=== PATIENT | male | born 1930 | race Caucasian/White ===

== ENCOUNTER 2017-02-21 11:02 | Emergency (ER) | payer MEDICARE ==
[~2017-02-21] VITALS: Ht 177.8 cm; Wt 80.9 kg
[~2017-02-21 11:02] MED LIST: AGGR20025 PO; NIAC250C6 PO; ROSU20 PO; TAB-TAB PO; TOLT4 PO; TYLE500T PO; [UNRECOGNIZED DRUG - CODE] PO
[2017-02-21 11:04] VITALS: BP 138/72; PULSE 87; RESP 16; TEMP 99.7; O2SAT 97
--- NOTE | 2017-02-21 11:31 | RADRPT ---
EXAM DATE/TIME: 02/21/2017 11:21 [place] COMPARISON: No previous studies available for comparison. INDICATIONS : Cough x1 week, shortness of breath. MEDICAL HISTORY : None. SURGICAL HISTORY : None. ENCOUNTER: Initial ACUITY: 1 week PAIN SCORE: 2/10 LOCATION: Bilateral chest FINDINGS: PA and lateral views of the chest demonstrate the lungs to be symmetrically aerated without evidence of mass, infiltrate or effusion. The cardiomediastinal contours are unremarkable. Osseous structure s are intact. Numerous healed right sided rib fractures and severe osteoporosis of both shoulders. Th ere's been distal resection of the left lateral clavicle. CONCLUSION: Normal examination. Lungs are grossly clear. Sharad Deng MD on February 21, 2017 at 11:28 Board Certified Radiologist. This report was verified electronically.
[2017-02-21 11:53] LABS: AUTOMATED NEUTROPHIL # 3.8 TH/MM3 (1.8-7.7); BASOPHIL % 0.5 % (0.0-2.0); EOSINOPHIL % 0.4 % (0.0-4.0); HEMATOCRIT 45.7 % (39.0-51.0); HEMOGLOBIN 15.7 GM/DL (13.0-17.0); LYMPHOCYTE # 0.8 TH/MM3 (1.0-4.8); MEAN CELL VOLUME 87.5 FL (80.0-100.0); MEAN CORPUSCULAR HEMOGLOBIN 30.1 PG (27.0-34.0); MEAN CORPUSCULAR HGB CONC 34.4 % (32.0-36.0); MEAN PLATELET VOLUME 9.3 FL (7.0-11.0); MONO % 18.3 % (0.0-8.0); NEUT % 66.8 % (16.0-70.0); PLATELET COUNT 123 TH/MM3 (150-450); RED BLOOD COUNT 5.22 MIL/MM3 (4.50-5.90); RED CELL DISTRIBUTION WIDTH 13.8 % (11.6-17.2); WHITE BLOOD COUNT 5.6 TH/MM3 (4.0-11.0)
[2017-02-21 12:14] LABS: ALBUMIN 3.9 GM/DL (3.4-5.0); AST (GOT) 26 U/L (15-37); BICARBONATE 27.5 MEQ/L (21.0-32.0); BLOOD UREA NITROGEN 15 MG/DL (7-18); CALCIUM 8.7 MG/DL (8.5-10.1); CHLORIDE 104 MEQ/L (98-107); CREATININE 1.09 MG/DL (0.60-1.30); GLOMERULAR FILTRATION RATE 64 ML/MIN (>89); GLUCOSE,RANDOM 91 MG/DL (74-106); LIPASE 93 U/L (73-393); SODIUM (NA) 138 MEQ/L (136-145)
[2017-02-21 12:18] LABS: ALKALINE PHOSPHATASE 75 U/L (45-117); ALT (GPT) 25 U/L (12-78); TOTAL BILIRUBIN ADULT 0.8 MG/DL (0.2-1.0); TOTAL PROTEIN 7.4 GM/DL (6.4-8.2)
[2017-02-21] MEDS ORDERED: PRED20 PO (12:37)
[2017-02-21] MEDS ORDERED: OSEL75 PO (12:37)
[2017-02-21 12:39] VITALS: PULSE 81; RESP 16; TEMP 99.2; O2SAT 97
--- NOTE | 2017-02-21 12:44 | PD ---
HPI Chief Complaint: Cold / Flu Symptoms Time Seen by Provider: 12:35 Travel History International Travel<30 days: No Contact w/Intl Traveler<30days: No Traveled to known affect area: No History of Present Illness HPI 86-year-old male presents the emergency Department with worsening upper respiratory symptoms including fever, muscle aches, nasal congestion, and cough. Patient was recently seen by his primary care physician about a week ago and treated with a Z-Marcus for sinus infection. He states he was getting better until yesterday when he had sudden onset fever 101 and generalized body aches and worsening congestion. The patient denies nausea, vomiting, or Diarrhea. The patient has no known drug allergies. Labs ordered in triage including rapid influenza A, CBC, and CMP. Chest x-ray was ordered as well. PFSH Past Medical History Cancer: Yes (SKIN CANCER) Cardiovascular Problems: Yes (hyperlipidemia) Diminished Hearing: No Influenza Vaccination: Yes ?: Not Past Surgical History Other Surgery: Yes (SKIN CANCER REMOVAL ) Social History Alcohol Use: Yes (WINE PER DAY) Tobacco Use: No Substance Use: No Allergies-Medications (Allergen,Severity, Reaction): Coded Allergies: No Known Allergies (Verified , 08/04/13) Reported Meds & Prescriptions Reported Meds & Active Scripts Active Prednisone 20 Mg Tab 20 Mg PO DAILY 5 Days Tamiflu (Oseltamivir Phosphate) 75 Mg Cap 75 Mg PO BID 5 Days Review of Systems Except as stated in HPI: all other systems reviewed are Neg General / Constitutional: Positive: Fever, Chills Eyes: No: Diploplia, Blurred Vision, Photophobia, Drainage, Redness, Foreign Body Sensation, Pain, Visual changes HENT: Positive: Headaches, Sore Throat, Rhinitis, Rhinorrhea, Congestion, No: Vertigo, Lightheadedness, Nosebleed, Neck Stiffness, Neck Pain, Dental Difficulties, Earache Cardiovascular: No: Chest Pain or Discomfort Respiratory: Positive: Cough, No: Shortness of Breath, Wheezing, Sneezing, Orthopnea, Hemoptysis, Night Sweats, Pleuritic Pain, Other Gastrointestinal: No: Abdominal Pain Genitourinary: No: Dysuria Musculoskeletal: No: Pain Skin: No Rash Neurologic: No: Weakness Psychiatric: No: Depression Endocrine: No: Polydipsia Hematologic/Lymphatic: No: Easy Bruising Physical Exam Narrative GENERAL: Patient appears in mild distress appearing ill but not septic. SKIN: Warm and dry. Decreased pallor. Normal turgor. HEAD: Atraumatic. Normocephalic. EYES: Pupils equal and round. No scleral icterus. No injection or drainage. ENT: No nasal bleeding but moderate clear nasal discharge. Mucous membranes pink and moist. TMs clear bilaterally. Posterior pharynx is unremarkable. NECK: Trachea midline. No JVD. Supple and nontender. CARDIOVASCULAR: Regular rate and rhythm. RESPIRATORY: No accessory muscle use. Clear to auscultation. Breath sounds equal bilaterally. GASTROINTESTINAL: Abdomen soft, non-tender, nondistended. Hepatic and splenic margins not palpable. MUSCULOSKELETAL: Extremities without clubbing, cyanosis, or edema. No obvious deformities. NEUROLOGICAL: Awake and alert. No obvious cranial nerve deficits. Motor grossly within normal limits. Five out of 5 muscle strength in the arms and legs. Normal speech. PSYCHIATRIC: Appropriate mood and affect; insight and judgment normal. Data Data Last Documented VS Vital Signs Date Time Temp Pulse Resp B/P (MAP) Pulse Ox O2 Delivery O2 Flow Rate FiO2 02/21/17 12:39 99.2 81 16 97 Room Air 02/21/17 11:04 138/72 (94) Orders Orders Chest, Pa & Lat (02/21/17 ) Comprehensive Metabolic Panel (02/21/17 11:11) Lipase (02/21/17 11:11) Complete Blood Count With Diff (02/21/17 11:11) Influenzae A/B Antigen (02/21/17 11:11) Oseltamivir (Tamiflu) (02/21/17 12:45) Prednisone (Deltasone) (02/21/17 12:45) Acetaminophen (Tylenol) (02/21/17 12:45) Labs Laboratory Tests Test 02/21/17 11:30 White Blood Count 5.6 TH/MM3 Red Blood Count 5.22 MIL/MM3 Hemoglobin 15.7 GM/DL Hematocrit 45.7 % Mean Corpuscular Volume 87.5 FL Mean Corpuscular Hemoglobin 30.1 PG Mean Corpuscular Hemoglobin Concent 34.4 % Red Cell Distribution Width 13.8 % Platelet Count 123 TH/MM3 Mean Platelet Volume 9.3 FL Neutrophils (%) (Auto) 66.8 % Lymphocytes (%) (Auto) 14.0 % Monocytes (%) (Auto) 18.3 % Eosinophils (%) (Auto) 0.4 % Basophils (%) (Auto) 0.5 % Neutrophils # (Auto) 3.8 TH/MM3 Lymphocytes # (Auto) 0.8 TH/MM3 Monocytes # (Auto) 1.0 TH/MM3 Eosinophils # (Auto) 0.0 TH/MM3 Basophils # (Auto) 0.0 TH/MM3 CBC Comment DIFF FINAL Differential Comment Blood Urea Nitrogen 15 MG/DL Creatinine 1.09 MG/DL Random Glucose 91 MG/DL Total Protein 7.4 GM/DL Albumin 3.9 GM/DL Calcium Level 8.7 MG/DL Alkaline Phosphatase 75 U/L Aspartate Amino Transf (AST/SGOT) 26 U/L Alanine Aminotransferase (ALT/SGPT) 25 U/L Total Bilirubin 0.8 MG/DL Sodium Level 138 MEQ/L Potassium Level 4.5 MEQ/L Chloride Level 104 MEQ/L Carbon Dioxide Level 27.5 MEQ/L Anion Gap 7 MEQ/L Estimat Glomerular Filtration Rate 64 ML/MIN Lipase 93 U/L MDM Medical Decision Making Medical Screen Exam Complete: Yes Emergency Medical Condition: Yes Differential Diagnosis Upper respiratory infection. Sinusitis. Influenza A. Narrative Course Patient is medically stable at time of exam. CBC and CMP are unremarkable. Chest x-ray is clear per radiologist. Patient is given his first dose of prednisone 40 mg by mouth now. Patient given first dose of Tamiflu 75 mg by mouth now. Patient discharged home on Tamiflu 75 mg twice a day for 5 days. Patient is kept on prednisone 20 mg daily. #5. Patient started on Flonase nasal spray 2 sprays each nostril daily. Patient to follow with his primary care physician as needed. Patient will return to emergency Department with worsening symptoms if necessary. Diagnosis Primary Impression: Influenza Referrals: Primary Care Physician Patient Instructions: General Instructions, H1N1 Influenza (ED) Additional Instructions: CBC and CMP are unremarkable. Chest x-ray is clear per radiologist. Patient is given his first dose of prednisone 40 mg by mouth now. Patient given first dose of Tamiflu 75 mg by mouth now. Patient discharged home on Tamiflu 75 mg twice a day for 5 days. Patient is kept on prednisone 20 mg daily. #5. Patient started on Flonase nasal spray 2 sprays each nostril daily. Patient to follow with his primary care physician as needed. Patient will return to emergency Department with worsening symptoms if necessary. Med/Other Pt SpecificInfo: Prescription(s) given Scripts Prednisone (Prednisone) 20 Mg Tab 20 MG PO DAILY for 5 Days, #5 TAB 0 Refills Prov: Tristan Landry MD 02/21/17 Oseltamivir (Tamiflu) 75 Mg Cap 75 MG PO BID for Mgmt Viral Infection for 5 Days, #10 CAP 0 Refills Prov: Tristan Landry MD 02/21/17 Disposition: 01 DISCHARGE HOME Condition: Stable Harshal Fried Feb 21, 2017 12:44
[2017-02-21] MEDS ORDERED: predniSONE 20 MG TAB PO ONE (12:45)
[2017-02-21] MEDS ORDERED: OSELTAMIVIR PHOSPHATE 75 MG CAP PO ONE (12:45)
[2017-02-21] MEDS ORDERED: ACETAMINOPHEN 325 MG TAB PO ONE (12:45)
[2017-02-21] MEDS ORDERED: FLUT1SPR5 EACH NARE (12:50)
[2017-02-21] MEDS ORDERED: GABA300C5 PO (15:02)
[2017-02-21] MEDS ORDERED: ATOR80TA45 PO (15:02)
[2017-02-21] MEDS ORDERED: CLOP75TA PO (15:02)
[2017-02-21] MEDS ORDERED: ALFU10TA2 PO (15:02)
[2017-02-21] MEDS ORDERED: LACTTAB8 PO (15:02)
== END 2017-02-21 13:00 | disposition home or self-care (01) ==
LOC: NEPD 11:02
DX: J11.1 Influenza due to unidentified influenza virus with other respiratory manifestations (principal); E78.5 Hyperlipidemia, unspecified
CPT/HCPCS: 71046; 80053; 83690; 85025; 87804; 99284; J7512